=== PATIENT | female | born 1940 | race Caucasian/White ===

== ENCOUNTER 2016-08-04 08:36 | Day surgery (SDC) | payer OTHER ==
[2016-07-21 10:25] VITALS: BMI 27.0
--- NOTE | 2016-07-21 11:13 | PAT Medication Instructions ---
Service Date July 21, 2016. Current Home Medication List Amlodipine (Norvasc), 5 MG PO QPM Aspirin (Aspirin Ec), 81 MG PO QAM Biotin (Biotin), 1 TAB PO QAM Cholecalciferol (Vitamin D3), 1 TAB PO QAM Cyanocobalamin (Vitamin B-12), 1,000 MCG PO QAM Fluticasone Propionate (Nasal) (Flonase Allergy Relief), 1 SPRAY INH QAM Loratadine (Claritin), 10 MG PO QAM None (Patient States No Home Meds) Ranitidine Hcl (Zantac), 150 MG PO BID Red Yeast Rice Extract (Red Yeast Rice), 1 TAB PO QAM Travoprost (Travatan Z), 1 DROPS OP HS Valacyclovir (Valtrex), 1,000 MG PO BID Medication Instructions For Your Scheduled Surgery - Check with surgeon for instructions: Aspirin (Aspirin Ec), 81 MG PO QAM - Hold the following medications starting 07/22/16: Red Yeast Rice Extract (Red Yeast Rice), 1 TAB PO QAM - Hold the following medications the morning of surgery: Ranitidine Hcl (Zantac), 150 MG PO BID Loratadine (Claritin), 10 MG PO QAM Biotin (Biotin), 1 TAB PO QAM Cholecalciferol (Vitamin D3), 1 TAB PO QAM Cyanocobalamin (Vitamin B-12), 1,000 MCG PO QAM - Take the following medications the morning of surgery with a sip of water: Valacyclovir (Valtrex), 1,000 MG PO BID Fluticasone Propionate (Nasal) (Flonase Allergy Relief), 1 SPRAY INH QAM - Take the following medications as scheduled the night before surgery: Valacyclovir (Valtrex), 1,000 MG PO BID Travoprost (Travatan Z), 1 DROPS OP HS Ranitidine Hcl (Zantac), 150 MG PO BID Amlodipine (Norvasc), 5 MG PO QPM If you have any questions please call us at [phone] (Ivelisse Jauregui PA-C ) or [phone] or [phone]
[2016-07-21 12:50] LABS: BASO % 0.4 %; BASO ABS # 0.02 K/uL (0-0.2); COMPLETE YES; EOS % 3.7 %; HEMATOCRIT 42.7 % (37-47); IG% 0.2 %; LYMPH ABS # 1.69 K/uL (1.2-3.4); MEAN CELL VOLUME 91.6 fL (80-100); MEAN CORPUSCULAR HEMOGLOBIN 29.8 pg (25-34); MEAN CORPUSCULAR HGB CONC 32.6 g/dl (32-36); MEAN PLATELET VOLUME 10.9 fL (7.4-10.4); NEUT % 53.7 %; PLATELET COUNT 253 K/uL (130-400); RED BLOOD COUNT 4.66 M/uL (4.2-5.4); WHITE BLOOD COUNT 5.12 K/uL (4.8-10.8)
[2016-07-21 13:21] LABS: BUN/CREATININE RATIO 14.6 (10-20); CALCIUM 9.2 mg/dl (8.5-10.1); CREATININE 0.79 mg/dl (0.60-1.20); POTASSIUM 4.2 mmol/L (3.5-5.1)
[~2016-08-04] VITALS: Ht 162.6 cm; Wt 71.2 kg
[~2016-08-04 08:36] MED LIST: AMLO-110 PO; ASPI81TA28 PO; BIOT50006 PO; BUPIVACAINE/EPINEPHRINE 0.5% MPF 1:200,000 30 ML VIAL ONE; CEFAZOLIN 2000 MG/60 ML D5W IV SCH; CHOL1000 PO; CLR10 PO; CYAN10005 PO; DEXAMETHASONE SOD INJ 4 MG/ML VIAL ONE; FENTANYL CITRATE INJ 50 MCG/1 ML 2 ML VIAL ONE; FLUT0.15 INH; GLYCOPYRROLATE INJ 0.2 MG/ML VIAL ONE; HEPARIN IV BOLUS 5,000 UNIT in SYRINGE 0 ML IV SCH; HEPARIN SOD 5000 UNIT/0.5 ML CARP SQ SCH; LACTATED RINGER'S 1000ML 1,000 ML IV SCH; LIDOCAINE HCL 2% 2 ML VIAL (20MG/ML) ONE; MIDAZOLAM HCL 1 MG/ML 2ML VIAL ONE; NEOSTIGMINE METHYLSULFATE 5 MG/5 ML SYR ONE; ONDANSETRON INJ 2 MG/ML 2 ML VIAL ONE; PROPOFOL IV EMULSION 10 MG/ML 20 ML VIAL IV ONE; RANI150T3 PO; RED600TA PO; ROCURONIUM BROMIDE 10 MG/ML 5 ML VIAL ONE; TRAV0.00 OP; VALA500T60 PO
[2016-08-04 08:53] VITALS: BP 161/71; PULSE 81; TEMP 36.6; O2SAT 97; Ht 162.6 cm; Wt 71.2 kg
--- NOTE | 2016-08-04 09:33 | History & Physical Bridge Note ---
H&P Re-Evaluation Bridge Note: I have examined the patient, reviewed the History & Physical and in the interval since the performance of the History & Physical I have noted the following changes of clinical significance: No changes noted
[2016-08-04] MEDS ORDERED: PROMETHAZINE HCL INJ 6.25 MG in SODIUM CHLORIDE 0.9% 50ML 50 ML IV PRN (10:00)
[2016-08-04] MEDS ORDERED: ONDANSETRON INJ 2 MG/ML 2 ML VIAL IV PRN ×2 (10:00→11:30)
[2016-08-04] MEDS ORDERED: ATROPINE SULFATE 0.1 MG/ML 5ML SYR IV PRN (10:00)
[2016-08-04] MEDS ORDERED: EpHEDrine SULFATE INJ 50 MG/ML AMP IV PRN (10:00)
[2016-08-04] MEDS ORDERED: GLYCOPYRROLATE INJ 0.2 MG/ML VIAL ONE (10:18)
[2016-08-04] MEDS ORDERED: HYDR-5688 PO (10:37)
--- NOTE | 2016-08-04 10:38 | Discharge Instructions ---
Discharge Instructions Date of Service August 04, 2016. Visit Reason for Visit: Gallbladder Sludge Discharge Discharge Diagnosis / Problem: laparoscopic cholecystectomy Discharge Goals Goal(s): Decrease discomfort Activity Recommendations Activity Limitations: as noted below Lifting Limitations: no more than 10 pounds Shower/Bathe: no limitations (ok to shower) Driving or Machine Use: resume 3 days after discharge Anesthesia . Post Anesthesia Instructions: If you have had General Anesthesia or IV Sedation: * Do not drive today. * Resume driving when surgeon permits. * Do not make important decisions or sign legal documents today. * Call surgeon for: 1. Temperature elevations greater than 101 degrees F. 2. Uncontrollable pain. 3. Excessive bleeding. 4. Persistent nausea and vomiting. 5. Medication intolerance (nausea, vomiting or rash). * For nausea and vomiting use only clear liquids such as: tea, soda, bouillon until nausea subsides, then gradually increase diet as tolerated. * If you have any concerns or questions, call your surgeon's office. If physician is unavailable and it is an emergency, call 911 or go to the nearest emergency room. . Instructions / Follow-Up Instructions / Follow-Up Dr. Oliva in 2 weeks, call [phone] if you do not have an appt or if you have any questions Diet Recommendations Recommended Home Diet: no limitations Procedures Procedures Performed: Laparoscopic Cholecystectomy, Liver biopsy Pending Studies Studies pending at discharge: yes List of pending studies: Pathology Medical Emergencies . Who to Call and When: Medical Emergencies: If at any time you feel your situation is an emergency, please call 911 immediately. . Non-Emergent Contact Non-Emergency issues call your: Surgeon Call Non-Emergent contact if: you have a fever, temperature is above 101.5, your pain is not controlled, wound has increased redness . . "Provider Documentation" section prepared by Francisco Schroeder. .
[2016-08-04] MEDS ORDERED: FENTANYL CITRATE INJ 50 MCG/1 ML 2 ML VIAL ONE (11:01)
[2016-08-04] MEDS ORDERED: ROCURONIUM BROMIDE 10 MG/ML 5 ML VIAL ONE (11:01)
[2016-08-04] MEDS ORDERED: LACTATED RINGER'S 1000ML 1,000 ML IV SCH (11:21)
[2016-08-04] MEDS ORDERED: HYDROCODONE/ACETAMOPHEN 5/325MG TAB PO PRN (11:30)
[2016-08-04] MEDS ORDERED: KETOROLAC TROMETHAMINE 15 MG/ML VIAL IV. PRN (11:30)
[2016-08-04] MEDS ORDERED: MoRPHine SULFATE 4 MG/ML 1 ML CARP\\VIAL IV PRN (11:30)
--- NOTE | 2016-08-04 11:40 | [facility] Operative Report ---
Operative Report Operative Date August 04, 2016. Pre-Operative Diagnosis Gallbladder sudge; abnormal LFT's Post-Operative Diagnosis same with adhesions Procedure(s) Performed lap tami;extensive enterolysis;left lobe liver bx Surgeon Dr. Franklin Oliva [employer]iologic Technology Teacher Surgeon(s) Nela Merlos PA-C Estimated Blood Loss 20ML Findings extensive small bowel/stomach/omental adhesions. normal appearing liver Specimens A: Gallbladder and contents B: Left lower lobe liver Biopsy Anesthesia get Complication(s) None Disposition Recovery Room / PACU I attest to the content of the Intraoperative Record and any orders documented therein. Any exceptions are noted below.
[2016-08-04] MEDS: FENTANYL CITRATE INJ 50 MCG/1 ML 2 ML VIAL IV PRN ×5 (11:45→12:07)
--- NOTE | 2016-08-04 12:34 | OPERATIVE REPORT ---
DATE OF OPERATION: 08/04/2016 PREOPERATIVE DIAGNOSES: 1. Symptomatic cholelithiasis. 2. Abnormal LFTs. POSTOPERATIVE DIAGNOSES: Same with extensive intraabdominal adhesions. PROCEDURE: Laparoscopic cholecystectomy, extensive enterolysis, and left lobe of liver biopsy. SURGEON: Dr. Oliva. CALL TAKER: Nela Reyes PA-C. ESTIMATED BLOOD LOSS: Approximately 20 mL COMPLICATIONS: No immediate. ANESTHESIA: General. The patient tolerated the procedure well. OPERATIVE NOTE: After informed consent was obtained, the patient was taken to the operating suite and placed in supine position. After successful intubation, the abdomen was sterilely prepped and draped in usual fashion. A supraumbilical incision was made with an 11 blade scalpel and carried down through the soft tissue using electrocautery. Anterior rectus fascia was opened using electrocautery and two #0 Vicryl stay sutures were placed. Peritoneum was entered using blunt finger penetration and a finger sweep was performed. A 12 mm Zonia trocar was placed and the abdomen was insufflated to 18 mmHg. When we inserted the camera, we immediately noted a lot of adhesions in the right upper quadrant as well as the mid abdomen. I was able to place a left upper quadrant 5 mm trocar under direct vision. I then used blunt dissection as well as Harmonic scalpel and sharp scissors lysis to begin to take down some of these adhesions. Eventually, as we worked our way across the abdomen toward the right upper quadrant, I was then able to place a right upper quadrant 5 mm trocar and then eventually a second right upper quadrant trocar. We continued to take down adhesions until we had all of them taken down, which extended from the right lower quadrant the way up to the right upper quadrant as well as the midline including the stomach, small bowel, and omentum. Once we had all of these down, our attention then turned to the gallbladder. We were able to grasp it and elevate it superiorly and laterally. Blunt dissection was used to take down adhesions around the neck. I was able to identify the cystic artery initially which was anterior. I skeletonized it, clipped it twice proximally and once distally, and transected it. In similar fashion, I was able to identify the cystic duct, skeletonized it, clipped and divided as well. Electrocautery was then used to remove the gallbladder from the gallbladder fossa. It was removed intact and placed into an EndoCatch bag. Small bleeding points on the gallbladder fossa were controlled using electrocautery. A thorough irrigation was performed. At the end of this part of the procedure, there was adequate hemostasis and no evidence of any bile leaks. I should note that I did, throughout the process of taking down adhesions, have to place a fifth trocar, another 5 mm trocar in the left mid abdomen to help with traction, counter traction, and to take down the adhesions. After the gallbladder was out, we then made a small skin incision in the left upper quadrant. A Star-Cut needle biopsy was used to take several core biopsies of the liver. We controlled the bleeding from the biopsy site using electrocautery. A thorough irrigation was performed and a final look around the entire upper abdomen showed adequate hemostasis and no bile leakage. We then removed the gallbladder from the camera port site. All the trocars were removed and the abdomen was desufflated. The fascia of the camera port was closed using 0 Vicryl in a [id number] fashion. All the wounds were irrigated and closed using 4-0 Monocryl. Marcaine was injected around them for postoperative analgesia and skin glue used as dressing. The patient was awakened, extubated, and transferred to recovery room in stable condition. I attest to the content of the Intraoperative Record and any orders documented therein. Any exceptio ns are noted below.
[2016-08-04 12:35] VITALS: BP 118/58; PULSE 68; TEMP 36.5; O2SAT 95
[2016-08-04 13:05] VITALS: BP 118/58; PULSE 86; TEMP 36.5; O2SAT 95
[2016-08-04 13:35] VITALS: BP 115/54; PULSE 80; TEMP 36.4; O2SAT 96
--- NOTE | 2016-08-04 13:53 | Anesthesiology Progress Note ---
Anesthesia Post Op Note Date & Time August 04, 2016 at 13:54 Vital Signs Pain Intensity: 4 Vital Signs Past 12 Hours Date Time Temp Pulse Resp B/P Pulse Ox O2 Delivery O2 Flow Rate FiO2 08/04/16 13:35 36.4 80 16 115/54 96 Room Air 08/04/16 13:05 36.5 86 16 118/58 95 Room Air 08/04/16 12:35 36.5 68 16 118/58 95 Room Air 08/04/16 12:20 37.6 67 16 116/55 94 Room Air 08/04/16 12:10 81 16 134/59 97 Room Air 08/04/16 12:00 71 16 124/100 98 Room Air 08/04/16 11:50 71 16 125/94 100 Mask 10 08/04/16 11:40 93 16 118/76 100 Mask 10 08/04/16 11:34 36.6 99 16 124/74 100 Mask 10 08/04/16 08:53 36.6 81 18 161/71 97 Room Air Notes Mental Status: alert / awake / arousable, participated in evaluation Pt Amnestic to Procedure: Yes Nausea / Vomiting: adequately controlled Pain: adequately controlled Airway Patency, RR, SpO2: stable & adequate BP & HR: stable & adequate Hydration State: stable & adequate Anesthetic Complications: no major complications apparent
== END 2016-08-04 14:05 | disposition home or self-care (01) ==
LOC: C.ACU 08:36
PROVIDERS: ATTEND Surgery
DX: K80.10 Calculus of gallbladder with chronic cholecystitis without obstruction (principal); R94.5 Abnormal results of liver function studies; K66.0 Peritoneal adhesions (postprocedural) (postinfection); I10 Essential (primary) hypertension; M19.90 Unspecified osteoarthritis, unspecified site; Z88.2 Allergy status to sulfonamides; Z88.5 Allergy status to narcotic agent; E78.5 Hyperlipidemia, unspecified; Z98.890 Other specified postprocedural states; Z90.89 Acquired absence of other organs; Z90.710 Acquired absence of both cervix and uterus; Z98.51 Tubal ligation status; Z87.891 Personal history of nicotine dependence; Z82.49 Family history of ischemic heart disease and other diseases of the circulatory system; Z82.3 Family history of stroke; Z83.3 Family history of diabetes mellitus; Z80.1 Family history of malignant neoplasm of trachea, bronchus and lung

== ENCOUNTER 2016-08-08 10:03 | Emergency (ER) | payer OTHER ==
[~2016-08-08] VITALS: Ht 162.6 cm; Wt 69.3 kg
[~2016-08-08 10:03] MED LIST changes: -BUPIVACAINE/EPINEPHRINE 0.5% MPF 1:200,000 30 ML VIAL ONE; -CEFAZOLIN 2000 MG/60 ML D5W IV SCH; -DEXAMETHASONE SOD INJ 4 MG/ML VIAL ONE; -FENTANYL CITRATE INJ 50 MCG/1 ML 2 ML VIAL ONE; -GLYCOPYRROLATE INJ 0.2 MG/ML VIAL ONE; -HEPARIN IV BOLUS 5,000 UNIT in SYRINGE 0 ML IV SCH; -HEPARIN SOD 5000 UNIT/0.5 ML CARP SQ SCH; +HYDR-5688 PO; -LACTATED RINGER'S 1000ML 1,000 ML IV SCH; -LIDOCAINE HCL 2% 2 ML VIAL (20MG/ML) ONE; -MIDAZOLAM HCL 1 MG/ML 2ML VIAL ONE; -NEOSTIGMINE METHYLSULFATE 5 MG/5 ML SYR ONE; -ONDANSETRON INJ 2 MG/ML 2 ML VIAL ONE; -PROPOFOL IV EMULSION 10 MG/ML 20 ML VIAL IV ONE; -ROCURONIUM BROMIDE 10 MG/ML 5 ML VIAL ONE
[2016-08-08 10:06] VITALS: TEMP 36.9; Ht 162.6 cm; Wt 69.3 kg
--- NOTE | 2016-08-08 10:26 | EMERGENCY ROOM VISIT NOTE ---
History Report prepared by Regine: Stephania Mcpherson Under the Supervision of: Dr. Kinjal Obrien D.O. First contact with patient: 10:13 Chief Complaint: COUGH Stated Complaint: SEVERE COUGH-HAD SURGERY ON MONDAY History of Present Illness The patient is a 76 year old female who presents to the Emergency Room with complaints of a worsening cough beginning 3 days prior to arrival. She is experiencing a clear sputum with the cough. The patient notes that she had surgery on . The surgery was to remove adhesions, cholecystomy, and liver biopsy were all done. The patient notes abdominal rash and notes abdominal soreness but states it is due to the recovery from surgery. She did call her PCP and was told to talk to surgeon. Her surgeon Dr. Oliva advised her to come to the ED. She is currently taking Hydrocodone which has not helped relieve her cough. The patient has also been taking NyQuil, cough drops and Robitussin. 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 Review of Systems See HPI for pertinent positives & negatives. A total of 10 systems reviewed and were otherwise negative. Past Medical & Surgical Medical Problems: (1) Kidney stones Surgical Problems: (1) S/P cholecystectomy Family History Cancer Diabetes mellitus Heart disease Kidney disease Kidney stones Social History Smoking Status: Never Smoker Smokeless Tobacco Use: No Alcohol Use: none Marital Status: Housing Status: lives with family Occupation Status: retired Current/Historical Medications Scheduled Amlodipine (Norvasc), 5 MG PO QPM Aspirin (Aspirin Ec), 81 MG PO QAM Benzonatate (Tessalon Perles), 100 MG PO TID Biotin (Biotin), 1 TAB PO QAM Cholecalciferol (Vitamin D3), 1 TAB PO QAM Cyanocobalamin (Vitamin B-12), 1,000 MCG PO QAM Fluticasone Propionate (Nasal) (Flonase Allergy Relief), 1 SPRAY INH QAM Loratadine (Claritin), 10 MG PO QAM Ranitidine Hcl (Zantac), 150 MG PO BID Red Yeast Rice Extract (Red Yeast Rice), 1 TAB PO QAM Travoprost (Travatan Z), 1 DROPS OP HS Scheduled PRN Hydrocodone/Acetaminophen 5MG/325MG (Irwin 5MG/325MG), 1-2 TABLET PO Q4H PRN for Pain Valacyclovir (Valtrex), 1,000 MG PO BID PRN for NEEDED Allergies Coded Allergies: Lisinopril (Verified Allergy, Mild, CAUSES HYPERTENSION, 08/08/16) Sulfa Drugs (Verified Allergy, Mild, RASH, 08/08/16) Adhesives (Verified Allergy, Unknown, ., 08/08/16) Codeine (Verified Adverse Reaction, Unknown, "DID NOT WORK", 08/08/16) Uncoded Allergies: IODINATED CONTRAST MEDIA (Allergy, Mild, ITCHING, 08/26/15) Physical Exam Vital Signs Date Time Temp Pulse Resp B/P Pulse Ox O2 Delivery O2 Flow Rate FiO2 08/08/16 14:10 102 18 137/83 92 08/08/16 13:05 104 24 136/88 92 Room Air 08/08/16 12:17 97 20 166/74 95 Room Air 08/08/16 11:21 102 18 132/77 94 Room Air 08/08/16 10:58 98 08/08/16 10:06 36.9 120 20 130/82 97 Room Air Physical Exam HEENT: Head - normocephalic and atraumatic Pupils are equal, round, and reactive to light. Extraocular eye muscles are intact, and sclera are anicteric. Nose - moist nasal mucosa without discharge. Mouth - moist buccal mucosa. Oropharynx is nonerythematous and there is no tonsillar exudate or edema noted. Neck: Supple; no JVD, nuchal rigidity, cervical lymphadenopathy. Heart: Tachycardic rate and rhythm. There is a normal S1 and S2 with no murmurs , clicks, or gallops appreciated. Lungs: Clear to auscultation bilaterally with no wheezes, rales, or rhonchi. Abdomen: Well healing surgical incisions, extremely small opening to lower right incision. Soft, completely nontender, nondistended, with good bowel sounds. There are no palpable pulsatile masses or hepatosplenomegaly. There is no guarding, rigidity, or rebound noted. Extremities: Tender calves, no palpable cords. No evidence of cyanosis, clubbing , or edema. There are easily palpable peripheral pulses. Skin: warm and dry with good turgor. Sand paper rash over abdomen. Medical Decision & Procedures ER Provider Diagnostic Interpretation: Radiology results as stated below per my review and the radiologist's interpretation: TWO VIEW CHEST CLINICAL HISTORY: Fever. Productive cough. FINDINGS: PA and lateral chest radiographs are compared to study dated 11/02/2005. The cardiomediastinal silhouette is unremarkable. There is mild atherosclerotic calcification of the thoracic aorta. There is platelike atelectasis in the right lower lobe with mild elevation of the right hemidiaphragm. No airspace consolidation or pleural effusion is identified. There is no pneumothorax. The skeletal structures are osteopenic. The bony thorax appears intact. Cholecystectomy clips are noted in the right upper quadrant. IMPRESSION: No active disease in the chest. Electronically signed by: Narendra Bethea M.D. 08/08/2016 11:22 AM Dictated Date/Time: 08/08/2016 11:[address] ANGIOGRAM OF THE CHEST CLINICAL HISTORY: Cough and dyspnea. COMPARISON STUDY: Chest radiograph dated 08/08/2016. Chest CT from [facility] dated 08/27/2015. TECHNIQUE: Following the IV administration of 94 cc of Optiray 320, CT angiogram of the chest was performed from the upper abdomen to the thoracic inlet utilizing the pulmonary embolus protocol. Images are reviewed in the axial, sagittal, and coronal planes. 3-D MIPS images are created and assessed. IV contrast was administered without complication. The patient was reportedly premedicated for history of contrast allergy. CT DOSE: 283.17 mGy.cm FINDINGS: Thyroid: Imaged portions of the thyroid gland are normal in size and attenuation. Thoracic aorta: There is mild atherosclerotic calcification of the thoracic aorta, which is normal in caliber and demonstrates standard 3-vessel arch anatomy. No dissection is seen. Pulmonary vasculature: The pulmonary trunk is normal in caliber. There are no filling defects identified in main, lobar, or segmental pulmonary branches to suggest pulmonary embolus. Heart: The heart is normal in size and configuration, and without pericardial effusion. Lungs and pleural spaces: Linear atelectasis is noted in the right lower lobe. There is no airspace consolidation typical for pneumonia or pleural effusion. The trachea and central airways are clear. There are scattered calcified granulomas. Mediastinum: There is no mediastinal lymphadenopathy. Michelle: Prominent hilar lymph nodes measure up to 10 mm short axis. Axillae: There is no axillary lymphadenopathy. Upper abdomen: There is a small hiatal hernia. Hepatic steatosis is observed. Partially visualized upper abdominal viscera is otherwise within normal limits. Skeletal structures: The skeletal structures are osteopenic. No lytic or blastic bony lesions are seen. Arthritic change is observed in the shoulders, right greater than left. Soft tissues: There are small foci of subcutaneous emphysema seen along the left lateral chest wall. IMPRESSION: 1. There is no evidence of pulmonary embolus in the main, lobar, or segmental pulmonary arteries. 2. There is no airspace consolidation or pleural effusion. 3. Hepatic steatosis. 4. There are small foci of gas within the subcutaneous soft tissues of the left chest wall. This is of indeterminant etiology and significance, and clinical correlation will be required. Electronically signed by: Narendra Bethea M.D. 08/08/2016 12:35 PM Dictated Date/Time: 08/08/2016 12:26 PM Laboratory Results 08/08/16 10:45 Red Blood Count 4.71, Mean Corpuscular Volume 90.9, Mean Corpuscular Hemoglobin 30.1, Mean Corpuscular Hemoglobin Concent 33.2, Mean Platelet Volume 10.4, Neutrophils (%) (Auto) 58.2, Lymphocytes (%) (Auto) 23.7, Monocytes (%) (Auto) 15.1, Eosinophils (%) (Auto) 2.6, Basophils (%) (Auto) 0.2, Neutrophils # (Auto ) 2.92, Lymphocytes # (Auto) 1.19, Monocytes # (Auto) 0.76, Eosinophils # (Auto ) 0.13, Basophils # (Auto) 0.01 08/08/16 10:45 Test 08/08/16 10:45 White Blood Count 5.02 K/uL (4.8-10.8) Red Blood Count 4.71 M/uL (4.2-5.4) Hemoglobin 14.2 g/dL (12.0-16.0) Hematocrit 42.8 % (37-47) Mean Corpuscular Volume 90.9 fL (80-100) Mean Corpuscular Hemoglobin 30.1 pg (25-34) Mean Corpuscular Hemoglobin Concent 33.2 g/dl (32-36) Platelet Count 214 K/uL (130-400) Mean Platelet Volume 10.4 fL (7.4-10.4) Neutrophils (%) (Auto) 58.2 % Lymphocytes (%) (Auto) 23.7 % Monocytes (%) (Auto) 15.1 % Eosinophils (%) (Auto) 2.6 % Basophils (%) (Auto) 0.2 % Neutrophils # (Auto) 2.92 K/uL (1.4-6.5) Lymphocytes # (Auto) 1.19 K/uL (1.2-3.4) Monocytes # (Auto) 0.76 K/uL (0.11-0.59) Eosinophils # (Auto) 0.13 K/uL (0-0.5) Basophils # (Auto) 0.01 K/uL (0-0.2) RDW Standard Deviation 47.8 fL (36.4-46.3) RDW Coefficient of Variation 14.3 % (11.5-14.5) Immature Granulocyte % (Auto) 0.2 % Immature Granulocyte # (Auto) 0.01 K/uL (0.00-0.02) D-Dimer 2090 ug/L FEU (0-500) Anion Gap 6.0 mmol/L (3-11) Est Creatinine Clear Calc Drug Dose 48.1 ml/min Estimated GFR () 65.9 Estimated GFR (Non- 56.8 BUN/Creatinine Ratio 14.5 (10-20) Calcium Level 8.7 mg/dl (8.5-10.1) Total Bilirubin 0.9 mg/dl (0.2-1) Aspartate Amino Transf (AST/SGOT) 31 U/L (15-37) Alanine Aminotransferase (ALT/SGPT) 54 U/L (12-78) Alkaline Phosphatase 58 U/L (45-117) Total Creatine Kinase 43 U/L (26-192) Creatine Kinase MB < 0.5 ng/ml (0.5-3.6) Creatine Kinase MB Ratio (0-3.0) Troponin I < 0.015 ng/ml (0-0.045) Pro-B-Type Natriuretic Peptide 51 pg/ml (0-900) Total Protein 7.8 gm/dl (6.4-8.2) Albumin 3.6 gm/dl (3.4-5.0) Globulin 4.2 gm/dl (2.5-4.0) Albumin/Globulin Ratio 0.9 (0.9-2) Laboratory results per my review. Medications Administered Medications (Trade) Dose Ordered Sig/Sindy Route Start Time Stop Time Status Last Admin Dose Admin Diphenhydramine HCl (Benadryl Inj) 50 mg NOW STAT IV 08/08/16 11:26 08/08/16 11:28 DC 08/08/16 11:32 50 MG Methylprednisolone Sodium Succinate (Solu-Medrol IV) 125 mg NOW STAT IV 08/08/16 11:26 08/08/16 11:28 DC 08/08/16 11:32 125 MG Ketorolac Tromethamine (Toradol Inj) 30 mg NOW STAT IV 08/08/16 13:11 08/08/16 13:12 DC 08/08/16 13:19 30 MG Procedure Solu-Medrol IV 125 mg IV, Benadryl Inj 50 mg IV, Toradol Inj 30 mg IV. ECG Indication: other (cough) Rate (beats per minute): 100 Rhythm: normal sinus Findings: T-wave inversion (Anterolateral), no ectopy, other (T wave flattening lead 1) ED Course 1020: Past medical records reviewed. The patient was evaluated in room B5. A complete history and physical exam was performed. 1126: Solu-Medrol IV 125 mg IV, Benadryl Inj 50 mg IV. 1131: Previous allergy to dye with rash after IV contrast. Benadryl and steroids given then scanned. 1311: Toradol Inj 30 mg IV. I reviewed the results of the CT scan with the patient and her . 1319: The patient is still coughing. She received medication and then will be discharged home. 1357: Upon reevaluation, the patient is hemodynamically stable. I discussed findings and results with her. She verbalized agreement of the treatment plan. She was discharged home. Medical Decision The patient is a 76 year old female who presents to the ED with cough. Differential diagnosis includes pneumonia, PE, bronchitis. Lab findings include: normal white blood cell, normal H&H, normal renal function and glucose, normal LFT, negative cardiac enzyme, BNP 51, D Dimer 2089. This patient underwent abdominal surgery last week. Since that time, she's had a persistent productive cough and some shortness of breath. I was concerned for the possibility of pneumonia versus PE. She did have an elevated d-dimer. However, the CT scan of the chest was unremarkable. There was no evidence of pneumonia. Her symptoms were most likely consistent with a bronchitis. She was afebrile and had no leukocytosis. This is most likely viral in origin. The patient was given a prescription for Tessalon Perles. She is already taking hydrocodone for pain. The patient will follow-up with the PCP if symptoms persist. If symptoms worsen , they can return here to the ER. Impression Primary Impression: Left sided chest pain Additional Impression: Bronchitis Scribe Attestation The scribe's documentation has been prepared under my direction and personally reviewed by me in its entirety. I confirm that the note above accurately reflects all work, treatment, procedures, and medical decision making performed by me. Departure Information Dispostion Home / Self-Care Prescriptions Benzonatate (TESSALON PERLES) 100 Mg Cap 100 MG PO TID, #20 CAP Prov: Kinjal Obrien D.O. 08/08/16 Referrals Elmira Diaz M.D. (PCP) Forms HOME CARE DOCUMENTATION FORM, IMPORTANT VISIT INFORMATION Patient Instructions Bronchitis Acute, My [facility] Additional Instructions Rest. Take Tessalon Perele every 8 hours for cough. Do deep breathing Return to the ER if symptoms worsen. Problem Qualifiers
[2016-08-08 10:58] LABS: BASO % 0.2 %; BASO ABS # 0.01 K/uL (0-0.2); COMPLETE YES; EOS % 2.6 %; HEMATOCRIT 42.8 % (37-47); IG% 0.2 %; LYMPH % 23.7 %; LYMPH ABS # 1.19 K/uL (1.2-3.4); MEAN CELL VOLUME 90.9 fL (80-100); MEAN CORPUSCULAR HEMOGLOBIN 30.1 pg (25-34); MEAN CORPUSCULAR HGB CONC 33.2 g/dl (32-36); MEAN PLATELET VOLUME 10.4 fL (7.4-10.4); MONO % 15.1 %; NEUT % 58.2 %; PLATELET COUNT 214 K/uL (130-400); RED BLOOD COUNT 4.71 M/uL (4.2-5.4); WHITE BLOOD COUNT 5.02 K/uL (4.8-10.8)
[2016-08-08 11:17] LABS: ALT/SGPT 54 U/L (12-78); AST/SGOT 31 U/L (15-37); BLOOD UREA NITROGEN 14 mg/dl (7-18); BUN/CREATININE RATIO 14.5 (10-20); CALCIUM 8.7 mg/dl (8.5-10.1); CARBON DIOXIDE 28 mmol/L (21-32); CHLORIDE 110 mmol/L (98-107); CREATININE 0.98 mg/dl (0.60-1.20); GLUCOSE 99 mg/dl (70-99); POTASSIUM 3.5 mmol/L (3.5-5.1); SODIUM 144 mmol/L (136-145)
[2016-08-08 11:22] LABS: ALB/GLOB RATIO 0.9 (0.9-2); ALKALINE PHOSPHATASE 58 U/L (45-117)
--- NOTE | 2016-08-08 11:24 | DIAGNOSTIC IMAGING REPORT ---
TWO VIEW CHEST CLINICAL HISTORY: Fever. Productive cough. FINDINGS: PA and lateral chest radiographs are compared to study dated 11/02/2005. The cardiomediastinal silhouette is unremarkable. There is mild atherosclerotic calcification of the thoracic aorta. There is platelike atelectasis in the right lower lobe with mild elevation of the right hemidiaphragm. No airspace consolidation or pleural effusion is identified. There is no pneumothorax. The skeletal structures are osteopenic. The bony thorax appears intact. Cholecystectomy clips are noted in the right upper quadrant. IMPRESSION: No active disease in the chest. Electronically signed by: Narendra Bethea M.D. 08/08/2016 11:22 AM Dictated Date/Time: 08/08/2016 11:21 AM
[2016-08-08] MEDS ORDERED: METHYLPREDNISOLONE 125 MG VIAL IV STA (11:26)
[2016-08-08] MEDS ORDERED: DiphenhydrAMINE HCL 50 MG/ML VIAL IV STA (11:26)
[2016-08-08] MEDS ORDERED: OPTIRAY 320 IV PRN (11:30)
--- NOTE | 2016-08-08 12:37 | DIAGNOSTIC IMAGING REPORT ---
CT ANGIOGRAM OF THE CHEST CLINICAL HISTORY: Cough and dyspnea. COMPARISON STUDY: Chest radiograph dated 08/08/2016. Chest CT from [id number] dated 08/27/2015. TECHNIQUE: Following the IV administration of 94 cc of Optiray 320, CT angiogram of the chest was performed from the upper abdomen to the thoracic inlet utilizing the pulmonary embolus protocol. Images are reviewed in the axial, sagittal, and coronal planes. 3-D MIPS images are created and assessed. IV contrast was administered without complication. The patient was reportedly premedicated for history of contrast allergy. CT DOSE: 283.17 mGy.cm FINDINGS: Thyroid: Imaged portions of the thyroid gland are normal in size and attenuation. Thoracic aorta: There is mild atherosclerotic calcification of the thoracic aorta, which is normal in caliber and demonstrates standard 3-vessel arch anatomy. No dissection is seen. Pulmonary vasculature: The pulmonary trunk is normal in caliber. There are no filling defects identified in main, lobar, or segmental pulmonary branches to suggest pulmonary embolus. Heart: The heart is normal in size and configuration, and without pericardial effusion. Lungs and pleural spaces: Linear atelectasis is noted in the right lower lobe. There is no airspace consolidation typical for pneumonia or pleural effusion. The trachea and central airways are clear. There are scattered calcified granulomas. Mediastinum: There is no mediastinal lymphadenopathy. Michelle: Prominent hilar lymph nodes measure up to 10 mm short axis. Axillae: There is no axillary lymphadenopathy. Upper abdomen: There is a small hiatal hernia. Hepatic steatosis is observed. Partially visualized upper abdominal viscera is otherwise within normal limits. Skeletal structures: The skeletal structures are osteopenic. No lytic or blastic bony lesions are seen. Arthritic change is observed in the shoulders, right greater than left. Soft tissues: There are small foci of subcutaneous emphysema seen along the left lateral chest wall. IMPRESSION: 1. There is no evidence of pulmonary embolus in the main, lobar, or segmental pulmonary arteries. 2. There is no airspace consolidation or pleural effusion. 3. Hepatic steatosis. 4. There are small foci of gas within the subcutaneous soft tissues of the left chest wall. This is of indeterminant etiology and significance, and clinical correlation will be required. Electronically signed by: Narendra Bethea M.D. 08/08/2016 12:35 PM Dictated Date/Time: 08/08/2016 12:26 PM
[2016-08-08] MEDS ORDERED: KETOROLAC TROMETHAMINE 30 MG/ML VIAL IV STA (13:11)
[2016-08-08] MEDS ORDERED: BENZ100C18 PO (13:53)
[2016-08-08 14:10] VITALS: BP 137/83; PULSE 102; O2SAT 92
== END 2016-08-08 14:11 | disposition home or self-care (01) ==
LOC: C.EDB 10:04
DX: R07.9 Chest pain, unspecified (principal); J40 Bronchitis, not specified as acute or chronic; Z87.442 Personal history of urinary calculi; Z83.3 Family history of diabetes mellitus; Z84.1 Family history of disorders of kidney and ureter; Z79.82 Long term (current) use of aspirin

== ENCOUNTER → 2016-10-11 | Outpatient (CLI) | payer OTHER ==
--- NOTE | 2016-10-11 13:30 | MAMMOGRAPHY REPORT ---
UNILATERAL RIGHT DIGITAL DIAGNOSTIC MAMMOGRAM TOMOSYNTHESIS WITH CAD AND TARGETED RIGHT ULTRASOUND: CLINICAL HISTORY: 76 year-old woman who presents describing "right breast problems". She describes f ocal pain and warmth inside her breast, most prominent in the upper inner quadrant. She reports her doctor felt a lump in the area of pain in the upper inner quadrant as well. TECHNIQUE: Right breast tomosynthesis in addition to standard 2D mammography was performed. Current aniyah de la cruz was also evaluated with a Computer Aided Detection (CAD) system. COMPARISON: Comparison is made to exams dated: 01/08/2016 mammogram, 12/11/2014 mammogram, 12/04/2013 mammogram, 11/29/2012 mammogram, 11/25/2011 mammogram, and 11/23/2010 mammogram. BREAST COMPOSITION: There are scattered areas of fibroglandular density in the right breast. FINDINGS: A square-shaped pain marker was placed on the skin of the upper inner quadrant of the anter ior right breast. The parenchymal pattern is similar to prior mammograms. No new suspicious mass, a rchitectural distortion or cluster of microcalcifications is identified. Targeted ultrasound was performed in the area of pain and lump described by the patient (2:00 right b reast, 2 cm from the nipple). Sonographically normal tissue is seen without a discrete solid or cyst ic mass. No focal skin thickening is appreciated. IMPRESSION: ACR BI-RADS CATEGORY 2: BENIGN, TARGETED ULTRASOUND ACR BI-RADS CATEGORY 2: BENIGN 1. There is no suspicious mammographic or targeted sonographic abnormality to explain the focal pain and lump in the 2:00 right breast. Therefore, clinical follow-up is recommended, as biopsy of a clin ically suspicious mass should not be precluded by negative imaging. 2. Otherwise, given the stable mammographic appearance of the right breast, would recommend return t o annual screening mammography schedule (due in December 2016). These results and recommendations were discussed with the patient at the time of the exam. Approximately 10% of breast cancers are not detected with mammography. A negative mammographic report should not delay biopsy if a clinically suggestive mass is present. Parul Sosa M.D. ay/:10/11/2016 11:43:52 Ruffler: Geni WEBB)(Amee), [facility] letter sent: Normal 1/2 BI-RADS Code: ACR BI-RADS Category 2: Benign Ultrasound BI-RADS: ACR BI-RADS Category 2: Benign
== END | disposition home or self-care (01) ==
LOC: C.MAMM 10:59
PROVIDERS: ATTEND Family Medicine
DX: N64.4 Mastodynia (principal)

== ENCOUNTER → 2017-07-10 | Outpatient (CLI) | payer OTHER ==
[~2017-07-10] MED LIST changes: -HYDR-5688 PO
--- NOTE | 2017-07-10 09:19 | DIAGNOSTIC IMAGING REPORT ---
SI JOINTS 3 OR MORE VIEWS CLINICAL HISTORY: SI JOINT ARTHRITIS COMPARISON STUDY: No previous studies for comparison. FINDINGS: No fractures are visualized. There is no SI joint fusion. There are mild degenerative changes. There are no erosive changes. IMPRESSION: Mild degenerative type changes. No evidence of erosive disease Electronically signed by: Lavell Ulloa M.D. 07/10/2017 9:17 AM Dictated Date/Time: 07/10/2017 9:17 AM
== END | disposition home or self-care (01) ==
LOC: C.RAD1850 08:54
PROVIDERS: ATTEND Family Medicine
DX: M46.98 Unspecified inflammatory spondylopathy, sacral and sacrococcygeal region (principal)

== ENCOUNTER → 2017-10-06 | Outpatient (CLI) | payer OTHER ==
[~2017-10-06] MED LIST changes: +ACYC-56 PO; -AMLO-110 PO; +AMLO5TAB3 PO; +ATOR-22 PO; +OMEP-334 PO; -RED600TA PO; -VALA500T60 PO
--- NOTE | 2017-10-06 10:18 | DIAGNOSTIC IMAGING REPORT ---
R PELVIS/UNILATERAL HIP 2-3VIEWS CLINICAL HISTORY: R GROIN PAIN pain COMPARISON: None. DISCUSSION: The bones and joint spaces appear intact. There is no evidence of fracture, dislocation or bony disease. There is no evidence for soft tissue swelling. IMPRESSION: Negative study. The above report was generated using voice recognition software. It may contain grammatical, syntax or spelling errors. Electronically signed by: Uvaldo Dunaway M.D. 10/06/2017 10:17 AM Dictated Date/Time: 10/06/2017 10:17 AM
--- NOTE | 2017-10-06 10:19 | DIAGNOSTIC IMAGING REPORT ---
R KNEE 3 VIEWS CLINICAL HISTORY: KNEE PAIN pain COMPARISON: None. DISCUSSION: The bones and joint spaces appear intact. There is no evidence of fracture, dislocation or bony disease. There is no evidence for soft tissue swelling. IMPRESSION: Negative study. The above report was generated using voice recognition software. It may contain grammatical, syntax or spelling errors. Electronically signed by: Uvaldo Dunaway M.D. 10/06/2017 10:17 AM Dictated Date/Time: 10/06/2017 10:17 AM
== END | disposition home or self-care (01) ==
LOC: C.RAD1850 10:01
PROVIDERS: ATTEND Family Medicine
DX: R10.31 Right lower quadrant pain (principal); M25.561 Pain in right knee; Z88.6 Allergy status to analgesic agent; Z88.8 Allergy status to other drugs, medicaments and biological substances; Z88.2 Allergy status to sulfonamides; Z91.041 Radiographic dye allergy status